=== PATIENT | female | born 1945 | race African-American/Black ===

== ENCOUNTER 2020-07-02 06:45 | Inpatient (IN) | payer MEDICARE, OTHER ==
[~2020-07-02 06:45] MED LIST: ALDACTONE25 MG PO; BACK & BODY PA1 EACH PO; CELEBREX200 MG PO; GABAPENTIN 100100 MG PO; HYDRALAZINE25 MG PO; HYDROCODON-ACE1 EAC2 PO; HYZAAR 100-251 EACH PO; KLOR-CON 88 MEQ PO; LIPITOR20 MG PO; NEURONTIN100 MG PO; PERCOCET 5-3251 EACH PO; PRILOSEC20 MG PO; SPIRONOLACTONE1 EACH PO; VERAPAMIL ER240 MG PO; XARELTO10 MG PO
[2020-07-02 08:44] LABS: HCT 41.4 % (37.0-47.0); HGB 13.5 g/dl (12.5-16.0); MCH 29.8 pg (25.0-31.0); MCHC 32.6 g/dL (32.0-36.0); MCV 91.4 fL (78.0-100.0); MPV 9.5 fL (6.0-9.5); RBC 4.53 M/uL (4.20-5.40); RDW 13.9 % (11.5-14.0); WBC 8.2 K/uL (4.0-10.5)
[2020-07-02 08:54] LABS: BILIRUBIN NEGATIVE (NEGATIVE); BLOOD NEGATIVE Ery/uL (NEGATIVE); CLARITY CLEAR (CLEAR); COLOR YELLOW (YELLOW); GLUCOSE (U) NORMAL (NORMAL); LEUKOCYTES NEGATIVE Leu/uL (NEGATIVE); NITRITE NEGATIVE (NEGATIVE); PROTEIN NEGATIVE (NEGATIVE); SPECIFIC GRAVITY 1.015 (1.001-1.030); UROBILINOGEN 0.2 mg/dL (0.2-1.0); pH 7.5 (5.0-9.0)
[2020-07-02 08:56] LABS: INR 1.05 (0.9-1.2); PTT 27.5 SECONDS (22.2-34.7)
[2020-07-02 09:07] LABS: ALBUMIN 3.8 g/dL (3.4-5.0); BILIRUBIN - TOTAL 0.4 mg/dL (0.2-1.0); CREATININE 0.8 mg/dL (0.51-0.95); GLOBULIN (CALCULATION) 4.8 g/dL; POTASSIUM 4.4 mmol/L (3.5-5.1); TOTAL PROTEIN 8.6 g/dL (6.4-8.2)
[2020-07-02] MEDS ORDERED: PERCOCET 5-3251 EACH PO (09:18)
--- NOTE | 2020-07-02 15:56 | NUR ---
PT. TO D/C HOME WITH SPOUSE. PT. HAS A ROLLING WALKER AND 06/24. PT. REQUESTED OUTPT. THERAPY AT [facility]. FIRST APPT. IS 07/04/20 @ 9:00 A.M.
[2020-07-03 05:49] LABS: BASOPHIL 0.2 % (0-2); EOSINOPHIL 0.7 % (0-7); HCT 32.9 % (37.0-47.0); HGB 10.6 g/dl (12.5-16.0); LYMPHOCYTE 20.1 % (15-48); MCH 29.8 pg (25.0-31.0); MCHC 32.2 g/dL (32.0-36.0); MCV 92.4 fL (78.0-100.0); MONOCYTE 11.9 % (0-12); MPV 9.7 fL (6.0-9.5); NEUTROPHIL 66.8 % (41-80); NRBC 0; PLT 265 K/uL (150-400); RBC 3.56 M/uL (4.20-5.40); RDW 13.7 % (11.5-14.0); WBC 8.8 K/uL (4.0-10.5)
[2020-07-03 06:02] LABS: BUN/CREAT RATIO (CALC) 24.4 RATIO; CREATININE 0.78 mg/dL (0.51-0.95); POTASSIUM 4.1 mmol/L (3.5-5.1)
[2020-07-03] MEDS ORDERED: ASPIRIN81 MG PO (10:20)
[2020-07-03] MEDS ORDERED: FEOSOL325 MG PO (10:20)
== END 2020-07-03 12:43 | disposition home or self-care (01) | DRG 470 ==
LOC: FSDC 06:45 → FMS 11:55
PROVIDERS: Nurse Practitioner Adult Health; ADMIT Orthopaedic Surgery
PROC: 0SR904A Replacement of Right Hip Joint with Ceramic on Polyethylene Synthetic Substitute, Uncemented, Open Approach (ICD-10-PCS; principal; 2020-07-02 10:00)
DX: M16.11 Unilateral primary osteoarthritis, right hip (principal); Z20.822 Contact with and (suspected) exposure to COVID-19; E78.5 Hyperlipidemia, unspecified; I10 Essential (primary) hypertension; E11.9 Type 2 diabetes mellitus without complications
CPT/HCPCS: 36415; 73501; 76000; 80048; 80053; 81003; 85025; 85610; 85730; 86850; 86900; 86901; 94010; 94762; 97110; 97116; 97162; 97166; 97530-GP; 97535; C1776; J0171; J0697; J1170; J1885; J2250; J2270; J2704; J2795; J3010; J3490; J7120